=== PATIENT | female | born 1950 | race Caucasian/White ===

== ENCOUNTER 2017-09-03 10:55 | Outpatient (RCR) | payer MEDICARE ==
[~2017-09-03 10:55] MED LIST: ANAS1TAB35 PO; ATOR20TA22 PO; CA C1TAB6 PO; CHOL10005 PO; FURO-45 PO; LEVO25TA57 PO; MELO7.5O4 PO; METO25TA91 PO; METO50TA19 PO; MULT-1335 PO; PRED-1 PO; VALS320T PO
[2017-09-03] MEDS ORDERED: DEN60I SUBQ (12:42)
[2017-09-03] MEDS ORDERED: AMLO-96 PO (12:43)
== END 2017-09-06 10:23 | disposition home or self-care (01) ==
LOC: RAON 10:55
PROVIDERS: ATTEND Radiology Radiation Oncology
DX: Z85.3 Personal history of malignant neoplasm of breast (principal); E78.00 Pure hypercholesterolemia, unspecified; Z92.3 Personal history of irradiation; Z79.899 Other long term (current) drug therapy
CPT/HCPCS: 99212

== ENCOUNTER 2018-02-04 09:24 | Outpatient (RCR) | payer MEDICARE ==
[~2018-02-04 09:24] MED LIST changes: +AMLO-96 PO; +DEN60I SUBQ; -VALS320T PO; +VALS320T4 PO
== END 2018-02-05 11:08 | disposition home or self-care (01) ==
LOC: RAON 09:24
PROVIDERS: ATTEND Radiology Radiation Oncology
DX: C50.912 Malignant neoplasm of unspecified site of left female breast (principal); Z17.0 Estrogen receptor positive status [ER+]; Z79.811 Long term (current) use of aromatase inhibitors; Z92.21 Personal history of antineoplastic chemotherapy; Z92.3 Personal history of irradiation; M85.80 Other specified disorders of bone density and structure, unspecified site; E78.00 Pure hypercholesterolemia, unspecified; I10 Essential (primary) hypertension; Z79.899 Other long term (current) drug therapy
CPT/HCPCS: 99212

== ENCOUNTER → 2018-07-01 | Outpatient (CLI) | payer MEDICARE ==
[~2018-07-01] MED LIST changes: +AMLO-111 PO; -AMLO-96 PO; +ANAS1TAB12 PO; -ANAS1TAB35 PO; -VALS320T4 PO; +VALS320T5 PO
--- NOTE | 2018-07-01 12:21 | RADIOLOGY IMAGING REPORT ---
FACILITY: [facility] - [place] PATIENT NAME: STEPHIE MORILLO : [id number] MR: [id number] V: [id number] EXAM DATE: [id number] ORDERING PHYSICIAN: SAM HACKETT TECHNOLOGIST: Maryann Perry PROCEDURE:BILATERAL DIAGNOSTIC DIGITAL MAMMOGRAM WITH CAD ASSISTED INTERPRETATION & 3D TOMOSYNTHESIS COMPARISON:Prior mammograms 01/16/2017, 06/11/2016 & 12/21/2014 & 02/02/2014. INDICATIONS:HX OF LEFT SIDED BREAST CA FINDINGS: The breast tissue is heterogeneously dense. Identified are post lumpectomy changes in the upper outer quadrant of the Left breast. There are no dominant masses or suspicious cluster of microcalcifications in either breast. Some loosely grouped benign appearing microcalcifications in the superior aspects of both breasts appear stable. DIAGNOSTIC CATEGORY 2--BENIGN FINDING. RECOMMENDATIONS: ROUTINE MAMMOGRAM AND CLINICAL EVALUATION IN 1 YR. IMPRESSION: BIRADS 2: Benign finding. Dictated by: Taqueria Lang M.D. on 07/01/2018 at 9:33 Transcribed by: BONNIE on 07/01/2018 at 10:10 Approved by: Taqueria Lang M.D. on 07/01/2018 at 12:20 [facility]
== END ==
LOC: MAMO 08:24
PROVIDERS: ATTEND Radiology Radiation Oncology
DX: R92.1 Mammographic calcification found on diagnostic imaging of breast (principal); Z17.0 Estrogen receptor positive status [ER+]; Z85.3 Personal history of malignant neoplasm of breast
CPT/HCPCS: 77062; 77066

== ENCOUNTER 2018-07-15 09:55 | Outpatient (RCR) | payer MEDICARE ==
[2018-07-15] MEDS ORDERED: LOSA-51 PO (10:35)
--- NOTE | 2018-07-15 23:32 | ONCOLOGY FOLLOW UP NOTE ---
EVENT DATE: July 15, 2018 REASON FOR VISIT Ongoing oncology surveillance. Known history of locally advanced breast carcinoma 2013. Patient is under mutual surveillance with Dr. Caldwell. ONCOLOGY HISTORY Left-sided breast carcinoma, presenting with axillary lymph node metastasis. Patient underwent neoadjuvant AC times four, followed by lumpectomy and lymph node dissection. Tumor responded to chemotherapy, and final surgery revealed a 2 mm, grade 2 invasive ductal carcinoma with one macrometastatic lymph node of 9 mm. Patient went on to receive external beam radiotherapy to the left breast and regional lymph nodes. She also completed Taxol-based chemotherapy times four. She presently is on Arimidex. INTERVAL HISTORY Sadaf was seen with her for a followup appointment. She has a sister in [place], so she received her initial chemotherapy program in [place], directed by Dr. Caldwell. She received her radiation therapy in [place] since she lives here. She is doing well from a clinical standpoint. Denies any bone pain, headaches, or any recent change on self breast exam. The patient did have a mammogram initially on 07/01/18, and I reviewed those images on the computer today. This study is benign. This was a bilateral digital mammogram with 3-D tomosynthesis. The patient informs me that she is on Prolia directed by Dr. Caldwell. She has a scheduled DEXA scan in October 2018. The patient locally is followed by Dr. Causey. Her medications were updated for the computer record today. MEDICATIONS Cholecalciferol (Vitamin D3) (VITAMIN D3) 1,000 Unit Tablet, 5000 UNIT PO DAILY, TAB 08/11/17 Multivitamin With Minerals (MULTIPLE VITAMIN) 1 Each Tablet, 1 EACH PO DAILY, TAB 08/11/17 Metoprolol Succinate (METOPROLOL SUCCINATE) 50 Mg Tab.er.24h, 1 TAB PO QDAY, TAB 07/25/15 Levothyroxine Sodium (SYNTHROID) 25 Mcg Tablet, 25 MCG PO QDAY 02/21/15 Meloxicam (MOBIC) 7.5 Mg/5 Ml Oral.susp, 7.5 MG PO QDAY 02/21/15 Atorvastatin Calcium (LIPITOR) 20 Mg Tablet, 1 TAB PO QDAY, TAB 02/21/15 Ca Carbonate/Vitamin D3/Vit K (CALCIUM + D SOFT CHEWABLE TAB) 1 Each Tab.chew, 1 EACH PO DAILY, TAB.CHEW 02/21/15 Anastrozole (ARIMIDEX) 1 Mg Tablet, 1 MG PO DAILY 02/21/15 Valsartan (Valsartan) 320 Mg Tablet, 320 MG PO DAILY 02/21/15 Discontinued Reported Medications Furosemide (FUROSEMIDE) 20 Mg Tablet, 1 TAB PO DAILY, TAB 02/21/15 MEDICAL AND HEALTH HISTORY 1. Invasive ductal carcinoma of the left breast which was ER and ID receptor positive, HER2 of 1+, diagnosed 02/2014. 2. DJD. 3. Hypercholesterolemia. 4. Hypertension. 5. Osteoporosis. SURGICAL HISTORY 1. Bilateral knee replacement 01/2017. 2. Laminectomy 2004. 3. Left breast lumpectomy and lymph node dissection. SOCIAL HISTORY Patient is . Her sister is to Dr. Nix in [place]. She is a retired teacher and active realtor. She has two children (one son and one daughter). REVIEW OF SYSTEMS Negative. PHYSICAL EXAMINATION VITAL SIGNS: BP 147/79, pulse 61, respirations 16, O2 sat 92% on room air. Weight 189. The remainder of the clinical exam is deferred until her next clinical appointment as she recently was examined by Dr. Caldwell per her request. IMPRESSION This is a 68-year-old female with history of locally advanced left-sided breast carcinoma responding to neoadjuvant chemotherapy with limited surgery and radiation therapy. She is now four years five months remote from her cancer diagnosis and doing exceptionally well in my opinion. PLAN She will continue the Arimidex and follow up with Dr. Caldwell in three months. She would like to continue to be seen on a q.6-month basis in this clinic, and I will follow her wishes. She will be seen for a clinical exam in six months. I told her I do not think there would be any value in proceeding with MRI scan or more detailed imaging at this juncture since her mammogram is normal at this time, and she is far enough out from the treatment program that we could do annual imaging and continue close clinical surveillance. She appears satisfied with that decision. [facility]
== END 2018-08-15 15:33 | disposition home or self-care (01) ==
LOC: RAON 09:55
PROVIDERS: ATTEND Radiology Radiation Oncology
DX: Z85.3 Personal history of malignant neoplasm of breast (principal); E78.00 Pure hypercholesterolemia, unspecified; Z92.3 Personal history of irradiation; Z79.899 Other long term (current) drug therapy
CPT/HCPCS: 99212

== ENCOUNTER → 2018-12-10 | Outpatient (CLI) | payer MEDICARE ==
[~2018-12-10] MED LIST changes: -AMLO-111 PO; +AMLO-125 PO; +LOSA-51 PO
--- NOTE | 2018-12-10 11:09 | RADIOLOGY IMAGING REPORT ---
FACILITY[place] [facility] [place]IENT NAME: Sadaf Mccullough : 1950 MR: [id number] V: [id number] EXAM DATE: ORDERING PHYSICIAN: MARCELA PRITCHARD TECHNOLOGIST: Location: [facility] [place] Patient: Sadaf Mccullough : 1950 Visit/Account:[id number] Date of Sevice: 12/10/2018 DEXA Scan Clinical history: Osteoporosis screening. Comparison: 12/10/2016. LUMBAR SPINE: Bone mineral density (BMD) measured in the lumbar spine correlates with a T-score of -2.1 and a Z-sco re of -1.1 which is osteopenia as defined by the World Health Organization. The corresponding risk o f fracture in the lumbar spine is increased compared with a young adult reference population. Lumbar spine bone density has increased by 1.5% compared to previous. Note that degenerative changes may f alsely increase bone density. LEFT FEMORAL NECK: Bone mineral density (BMD) measured in the femoral neck correlates with a T-score of -1.8 and a Z-sco re of -0.6 which is osteopenia as defined by the World Health Organization. Bone mineral density (BMD) measured in the femoral neck region is 0.787 g/cm2. LEFT TOTAL HIP: Total hip bone mineral density (BMD) correlates with a T-score of -1.3 and a Z-score of -0.4 which is osteopenia as defined by the World Health Organization. Total hip bone density has increased by 3.3 % compared to previous. The corresponding risk of fracture in the hip is increased compared with a young adult reference popu [facility]. IMPRESSION: 1. Lumbar spine: Osteopenia. Lumbar spine bone density has increased by 1.5% compared to previous. 2. Left femoral neck: Osteopenia. 3. Left femoral neck: Bone Mineral Density is 0.787 g/cm2. 4. Left total hip: Osteopenia. Total hip bone density has increased by 3.3% compared to previous. FRAX WHO Fracture Risk Assessment Tool link: <http://www.shef.ac.uk/FRAX/tool.jsp?locationValue=9> PLEASE NOTE: 1) The World Health Organization defines low BMD as follows: T-score Normal > -1 Osteopenia < -1 and > -2.5 Osteoporosis < -2.5 without fractures Established osteoporosis < -2.5 with fractures 2) In general, you may wish to consider: Diagnosis Treatment Follow-up DEXA Normal BMD Prevention 2-3 years Osteopenia Prevention/therapy 1-2 years Osteoporosis Therapy Yearly 3) Fracture risk estimated from the T-score is more accurate for vertebral fractures (often spontane ous) than for hip fractures. Report Dictated By: Filipe Queen MD at 12/10/2018 10:58 AM Report E-Signed By: Filipe Queen MD at 12/10/2018 11:04 AM WSN:[id number]
== END ==
LOC: RAD 00:35
PROVIDERS: ATTEND Internal Medicine Medical Oncology
DX: M85.89 Other specified disorders of bone density and structure, multiple sites (principal)
CPT/HCPCS: 77080